=== PATIENT | female | born 1935 | race Caucasian/White ===

== ENCOUNTER 2020-01-15 14:25 | Emergency (ER) | payer MEDICARE ==
[~2020-01-15] VITALS: Ht 165.1 cm; Wt 55.0 kg
[2020-01-15] MEDS ORDERED: METHOCARBAMOL 500MG TABLET PO ONE (16:30)
[2020-01-15] MEDS ORDERED: KETOROLAC 60MG/2ML VIAL IM ONE (16:30)
[2020-01-15 18:37] VITALS: BP 157/65
== END 2020-01-15 18:45 | disposition home or self-care (01) ==
LOC: ER 14:25
DX: S20.211A Contusion of right front wall of thorax, initial encounter (principal); S40.021A Contusion of right upper arm, initial encounter; S80.11XA Contusion of right lower leg, initial encounter; V49.49XA Driver injured in collision with other motor vehicles in traffic accident, initial encounter; Y93.89 Activity, other specified; Y92.89 Other specified places as the place of occurrence of the external cause; Y99.8 Other external cause status; F17.290 Nicotine dependence, other tobacco product, uncomplicated; I10 Essential (primary) hypertension
CPT/HCPCS: 71045; 72125; 73560; 73590; 96372; 99284; J1885